=== PATIENT | female | born 1975 | race African-American/Black ===

== ENCOUNTER 2020-05-01 14:42 | Outpatient (CLI) | payer BC, SELFPAY ==
--- NOTE | ~2020-05-01 | US_ITS ---
EXAMINATION: US thyroid EXAM DATE: 05/01/2020 15:19 INDICATION: Goiter. TECHNIQUE: Multiple grayscale and Doppler images of the thyroid were obtained (by a technologist who performed the scan) and subsequently reviewed. Individual nodules and recommendations may be reporte d in accordance with TI-RADS system as designated by the 2017 ACR White Paper TI-RADS committee. The re is no prior study for comparison. FINDINGS: The right thyroid lobe measures 6.4 x 1.2 x 1.8 cm, the left measuring 4.4 x 1.7 x 1.1 cm. Relatively homogeneous thyroid echogenicity. There is a hypoechoic nodule in the left side of the isthmus measu ring up to 5 mm, not likely clinically significant. IMPRESSION: 1. Thyromegaly. Reviewed, dictated and finalized at location A. IMPRESSION: 1. Thyromegaly.
== END 2020-05-01 14:43 | disposition home or self-care (01) ==
LOC: ANHIMG 14:50
PROVIDERS: PCP Emergency Medicine; Visit Provider Emergency Medicine
DX: E04.9 Nontoxic goiter, unspecified (principal)
CPT/HCPCS: 76536

== ENCOUNTER 2020-09-13 08:02 | Outpatient (CLI) | payer BC, SELFPAY ==
--- NOTE | 2020-09-13 | EST_ITS ---
Patient Info Name: Lennie Munguia Age: 44 years : 1975 Gender: Female Ht: 65 in Wt: 304 lbs BSA: 2.60 m2 Exam Date: 09/13/2020 9:01 AM Exam Location: [facility] Patient Status: Outpatient Admit Date: 09/13/2020 Staff Ordering Physician: Shashi De Dios MD Attending Provider: Benjamin Gamino DO Referring Physician: Lanre VANG; Exercise Technologist: Bashir Saldana RDCS, RT Exercise Physician: Benjamin Gamino DO Exam Type: CA stress echo Study Info Indications R07.9 - Chest pain, unspecified Treadmill exercise stress echocardiogram is performed. Summary 1. 1. Negative Sushil exercise stress test for ischemic ST changes by ECG criteria. 2. 2. Reduced functional capacity, achieving 7 METs of workload. 3. 3. Hypertensive response to exercise. 4. 4. Appropriate HR response to exercise. 5. 5. Appropriate HR recovery at 1 minute post exercise. 6. 6. Negative stress echocardiogram for ischemia by wall motion analysis. 7. 7. Patient informed of the above results. Stress Echo Findings Left Ventricle Appropriate increase in LV endocardial thickening with systole. Appropriate augmentation of contractility with systole. No wall motion abnormality. Left Ventricle Normal LV systolic function, no wall motion abnormality. Protocol: Sushil Stress ECG Details Stage: REST Duration (min): 3 min : 35 sec Speed (mph): 0.0 Grade (%): 0 HR (bpm): 85 SBP (mmHg): 129 DBP (mmHg): 89 METS: --- Stage: REST Duration (min): 37 min : 47 sec Speed (mph): 0.0 Grade (%): 0 HR (bpm): 92 SBP (mmHg): 129 DBP (mmHg): 89 METS: --- Stage: STAGE 1 Duration (min): 1 min : 0 sec Speed (mph): 1.7 Grade (%): 10 HR (bpm): 124 SBP (mmHg): 129 DBP (mmHg): 89 METS: --- Stage: STAGE 1 Duration (min): 2 min : 0 sec Speed (mph): 1.7 Grade (%): 10 HR (bpm): 140 SBP (mmHg): 129 DBP (mmHg): 89 METS: --- Stage: STAGE 1 Duration (min): 3 min : 0 sec Speed (mph): 1.7 Grade (%): 10 HR (bpm): 147 SBP (mmHg): 204 DBP (mmHg): 99 METS: --- Stage: STAGE 2 Duration (min): 1 min : 0 sec Speed (mph): 2.5 Grade (%): 12 HR (bpm): 157 SBP (mmHg): 204 DBP (mmHg): 99 METS: --- Stage: STAGE 2 Duration (min): 2 min : 0 sec Speed (mph): 2.5 Grade (%): 12 HR (bpm): 164 SBP (mmHg): 252 DBP (mmHg): 96 METS: --- Stage: STAGE 2 Duration (min): 3 min : 0 sec Speed (mph): 2.5 Grade (%): 12 HR (bpm): 169 SBP (mmHg): 212 DBP (mmHg): 106 METS: --- Stage: STAGE 3 Duration (min): 1 min : 0 sec Speed (mph): 0.0 Grade (%): 0 HR (bpm): 143 SBP (mmHg): 212 DBP (mmHg): 106 METS: --- Stage: STAGE 3 Duration (min): 1 min : 1 sec Speed (mph): 0.0 Grade (%): 0 HR (bpm): 144 SBP (mmHg): 212 DBP (mmHg): 106 METS: --- Stage: RECOVERY Duration (min): 0 min : 58 sec Speed (mph): 0.0 Grade (%):
== END 2020-09-13 08:03 | disposition home or self-care (01) ==
PROVIDERS: PCP Emergency Medicine; Visit Provider Emergency Medicine
DX: R07.9 Chest pain, unspecified (principal)
CPT/HCPCS: 93351

== ENCOUNTER 2022-06-11 12:44 | Emergency (ER) | payer BC, SELFPAY ==
--- NOTE | ~2022-06-11 | XR_ITS ---
EXAMINATION: XR chest 2V DATE: 06/11/2022 14:13 INDICATION: Shortness of breath. Left chest pain. TECHNIQUE: Frontal and lateral views of the chest were obtained. COMPARISON: None. FINDINGS: The chest demonstrates clear lungs without pneumonia, pleural effusion, or pneumothorax. Th e heart size is normal. IMPRESSION: 1. No acute cardiopulmonary disease. Reviewed, dictated and finalized at location A.
[2022-06-11 13:31] VITALS: BP 122/94; PULSE 84; RESP 16; TEMP 36.5; O2SAT 99
--- NOTE | 2022-06-11 13:55 | ECG_ITS ---
Measurements Intervals [place] Rate: 74 P: 49 MI: 193 QRS: -9 QRSD: 102 T: 27 QT: 388 QTc: 431 Interpretive Statements SINUS RHYTHM DELAYED PRECORDIAL R/S TRANSITION VOLTAGE CRITERIA FOR LVH NONSPECIFIC T-WAVE ABNORMALITY- ANTEROLAT/INF LEADS BORDERLINE ECG NO PREVIOUS ECG AVAILABLE FOR COMPARISON Electronically Signed On 06-11-2022 14:02:56 CDT by Benjamin Gamino D.O.
[2022-06-11 14:08] LABS: Basophils Percent Auto 0.5 % (0.2-1.2); Eosinophils Absolute Auto 0.1 K/mm3 (0-0.3); Eosinophils Percent Auto 1.8 % (0-4.4); Hematocrit 36.9 % (37.0-47.0); Hemoglobin 12.1 g/dL (12.0-15.0); Immature Granulocyte Absolute 0.02 K/mm3 (0.00-0.031); Immature Granulocyte Percent A 0.4 % (0-0.5); Lymphocytes Absolute Auto 2.49 K/mm3 (0.9-3.2); Lymphocytes Percent Auto 45.3 % (18.3-44.2); Mean Corpuscular HGB Conc 32.8 g/dl (32-36); Mean Corpuscular Hemoglobin 27.1 pg (26-34); Mean Corpuscular Volume 82.6 fl (80-100); Mean Platelet Volume 11.1 fl (7.4-10.4); Monocytes Absolute Auto 0.3 K/mm3 (0.1-0.6); Neutrophils Absolute Auto 2.5 K/mm3 (1.3-6.7); Platelet Count Result 243 k/mm3 (150-375); Red Blood Count 4.47 M/mm3 (4.2-5.4); Red Cell Distribution Width 13.4 % (11.5-14.5); White Blood Count 5.5 K/mm3 (4.5-10.0)
[2022-06-11 14:18] LABS: Alanine Aminotransferase 23 U/L (6-35); Albumin Level 4.4 g/dL (3.5-5.1); Alkaline Phosphatase 82 U/L (38-126); Anion Gap 10 mmol/L (8-16); Aspartate Amino Transferase 26 U/L (14-36); Bilirubin,Total 0.4 mg/dL (0.2-1.3); Blood Urea Nitrogen 11 mg/dL (7-17); Calcium 9.4 mg/dL (8.4-10.2); Carbon Dioxide 29 mmol/L (22-30); Chloride 102 mmol/L (98-107); Estimated CRCL calculation 89 ml/min; Estimated Glomerular Filt Rate > 60; Glucose 102 mg/dL (65-110); Potassium 3.7 mmol/L (3.4-5.0); Sodium 141 mmol/L (137-145)
--- NOTE | 2022-06-11 16:01 | ED.SOB ---
HPI - SOB/Dyspnea General Chief Complaint: Shortness of Breath/Dyspnea Stated Complaint: body aches, fatigued, SOB Time Seen by Provider: 06/11/22 16:00 Source: patient Mode of arrival: ambulatory Limitations: no limitations History of Present Illness HPI Narrative: The patient is a 46-year-old female with a history of hypertension, hyperlipidemia, presenting to the emergency department for evaluation of various complaints. Patient states that her son had COVID 2 weeks ago and she believes that she became symptomatic a week ago. She assumes she had COVID and never did seek confirmatory testing. Patient has had myalgia, subjective fever, right-sided chest pain, back pain, shortness of breath, nonproductive cough, and abdominal pain as well as diarrhea. Patient reports frontal chest pain which is aching in nature and worse with deep inspiration. She reports associated shortness of breath. She reports mild aching headache in the frontal aspect of her head with associated dizziness that is currently resolved. Patient denies any recent fall or injury. Denies focal weakness or numbness. She denies difficulty with ambulation. Related Data Home Medications Medication Instructions Recorded Confirmed irbesartan 150 1 tablet PO DAILY 05/07/22 05/07/22 mg-hydrochlorothiazide 12.5 mg tablet metformin 500 mg tablet 500 mg PO DAILY 05/07/22 05/07/22 Allergies Allergy/AdvReac Type Severity Reaction Status Date / Time No Known Allergies Allergy Unverified 05/07/22 09:43 Review of Systems Review of Systems: CONSTITUTIONAL: Reports subjective fever and chills EYES: Denies visual changes, redness, or discharge. ENT: Reports rhinorrhea, congestion CARDIOVASCULAR: Reports chest pain without palpitations RESPIRATORY: Reports cough and shortness of breath GASTROINTESTINAL: Reports abdominal pain with nausea, reports loose stools GENITOURINARY: Denies dysuria or hematuria. SKIN: Denies rash or itching. MUSCULOSKELETAL: Reports right thoracic back pain without rash, lesions. Denies bruising. NEUROLOGIC: Reports mild headache without focal weakness or numbness PMFSH Past Medical History Medical History High cholesterol History of hypertension HSV-2 infection Screening mammogram, encounter for Surgical History Surgical History Delivery by section (11/12/02) H/O: hysterectomy (08/03/20) RATLH symptomatic uterine fibroids History of gynecological procedure 2012 -Uterine artery embolization Family History Family History Grandparent Malignant neoplasm of prostate Mother Diabetes mellitus Non-Hodgkin lymphoma Other Lupus erythematosus maternal aunt Other Breast cancer Social History Social History Smoking status: Never smoker Alcohol intake: never Substance use: never Substance use type: does not use Additional living arrangements comments: Additional occupation/education comments: medical billing Gender identity (if verbalized by the patient): Female Sexual Orientation (if Verbalized by the Patient): Straight or Heterosexual Exam Narrative: GENERAL: Awake, alert, conversant HEAD: Normocephalic, atraumatic. EYES: PERRLA and EOMI. ENT: Nares clear, no rhinorrhea or epistaxis. Mucous membranes moist. NECK: Supple. CHEST: No respiratory distress, breathing even and non labored, no chest wall tenderness HEART: Regular rate, sinus rhythm ABDOMEN:Non distended, non tender Thorax: Positive left paraspinal thoracic tenderness without midline tenderness, no step-offs or deformities, no vesicular rash or lesions EXTREMITIES: Normal range of motion. No edema. SKIN: Warm, dry, no rash. NEURO:No focal deficits. Alert and oriented x3. Patient is ambulatory w
[2022-06-11 16:11] VITALS: PULSE 84
--- NOTE | 2022-06-11 16:12 | PC.NURSE ---
added blood on pt. specimen.
[2022-06-11 16:25] LABS: Lipase 113 U/L (23-300)
[2022-06-11 16:38] LABS: SARS-CoV-2 RNA PCR Negative
[2022-06-11 16:42] LABS: Troponin I < 0.012 ng/mL (0.000-0.034)
[2022-06-11 16:44] VITALS: O2SAT 99
[2022-06-11 17:27] VITALS: BP 173/96; PULSE 80; RESP 16; O2SAT 98
== END 2022-06-11 17:28 | disposition home or self-care (01) ==
PROVIDERS: Nurse Practitioner Family; Emergency Provider Emergency Medicine; PCP Family Medicine
DX: M79.10 Myalgia, unspecified site (principal); R07.89 Other chest pain; I10 Essential (primary) hypertension; E78.5 Hyperlipidemia, unspecified; Z20.822 Contact with and (suspected) exposure to COVID-19; Z79.84 Long term (current) use of oral hypoglycemic drugs; E78.00 Pure hypercholesterolemia, unspecified; B00.9 Herpesviral infection, unspecified
CPT/HCPCS: 36415; 71046; 80053; 83690; 84484; 85025; 93005; 99284; C9803; U0003; U0005

== ENCOUNTER 2022-09-07 14:35 | Emergency (ER) | payer BC, SELFPAY ==
[2022-09-07 15:20] VITALS: BP 151/96; PULSE 82; RESP 16; TEMP 36.4; O2SAT 100
--- NOTE | 2022-09-07 16:39 | ED.LOWEXIN ---
HPI - Extremity Injury (Lower) General Chief Complaint: Extremity Injury, Lower Stated Complaint: RLE swelling, right foot numb Time Seen by Provider: 09/07/22 16:26 History of Present Illness HPI Narrative: Patient is a 46-year-old female presenting with right leg swelling and pain. Patient states that she first noticed around Thanksgiving that her right knee was swollen and it was painful to walk on it. States that the swelling and pain improved after using ibuprofen but then it returned over the last several days. States that she woke up yesterday and her right knee was more swollen than its ever been. States that normally she can take ibuprofen whenever she has knee pain and it improves but this time it continued. She was seen at urgent care earlier today who advised she come in for evaluation for DVT. She denies recent injuries, calf redness or warmth, fevers, hip pain. No chest pain, lightheadedness, shortness of breath. Related Data Home Medications Medication Instructions Recorded Confirmed irbesartan 150 1 tablet PO DAILY 05/07/22 05/07/22 mg-hydrochlorothiazide 12.5 mg tablet metformin 500 mg tablet 500 mg PO DAILY 05/07/22 05/07/22 Allergies Allergy/AdvReac Type Severity Reaction Status Date / Time No Known Allergies Allergy Verified 09/07/22 15:55 Review of Systems Review of Systems: All systems reviewed & are unremarkable except as noted in HPI and below PMFSH Past Medical History Medical History High cholesterol History of hypertension HSV-2 infection Screening mammogram, encounter for Surgical History Surgical History Delivery by section (11/12/02) H/O: hysterectomy (08/03/20) RATLH symptomatic uterine fibroids History of gynecological procedure 2012 -Uterine artery embolization Family History Family History Grandparent Malignant neoplasm of prostate Mother Diabetes mellitus Non-Hodgkin lymphoma Other Lupus erythematosus maternal aunt Other Breast cancer Social History Social History Smoking status: Never smoker Alcohol intake: never Substance use: never Substance use type: does not use Additional living arrangements comments: Additional occupation/education comments: medical billing Gender identity (if verbalized by the patient): Female Sexual Orientation (if Verbalized by the Patient): Straight or Heterosexual Exam Narrative: GENERAL: Well-appearing, well-nourished, and in no acute distress. HEAD: Normocephalic, atraumatic. EYES: PERRLA and EOMI. ENT: Nares clear, no rhinorrhea or epistaxis. Mucous membranes moist. NECK: Supple. CHEST: Clear to auscultation. No respiratory distress. HEART: Regular rate and rhythm. No murmur heard. Normal peripheral pulses. ABDOMEN: Soft, nontender, nondistended, normal active bowel sounds. EXTREMITIES: Normal range of motion. No significant edema of either lower extremity, mild tenderness along medial patella, no overlying erythema or warmth SKIN: Warm, dry, no rash. NEURO: No focal deficits. Alert and oriented x3. PSYCH: Normal mood and affect. Course Vital Signs Vital signs: Vital Signs Temperature 97.6 F 09/07/22 15:20 Pulse Rate 82 09/07/22 15:20 Respiratory Rate 16 09/07/22 15:20 Blood Pressure 151/96 H 09/07/22 15:20 Pulse Oximetry 100 09/07/22 15:20 Oxygen Delivery Room Air 09/07/22 15:20 Temperature 97.6 F 09/07/22 15:20 Pulse Rate 82 09/07/22 15:20 Respiratory Rate 16 09/07/22 15:20 Blood Pressure 151/96 H 09/07/22 15:20 Pulse Oximetry 100 09/07/22 15:20 Oxygen Delivery Room Air 09/07/22 15:20 MDM - Extremity Injury (Lower) MDM Narrative Medical decision making narrative: Patient is a 4
== END 2022-09-07 18:07 | disposition home or self-care (01) ==
PROVIDERS: Emergency Provider Emergency Medicine; PCP Family Medicine
DX: M79.661 Pain in right lower leg (principal); M79.89 Other specified soft tissue disorders; I10 Essential (primary) hypertension
CPT/HCPCS: 36415; 85380; 99283